=== PATIENT | male | born 1980 | race Caucasian/White ===

== ENCOUNTER 2016-04-29 12:53 | Emergency (ER) | payer OTHER ==
[2016-04-29] MEDS ORDERED: ONDANSETRON 4 MG TAB.RAPDIS PO ONE (13:12)
--- NOTE | 2016-04-29 13:13 | ER Document Report ---
ED Medical Screen (RME) - General Stated Complaint: ABDOMINAL PAIN/VOMITING Notes: has been bothering him for about three weeks. left groin and abdominal pain with back pain, diarrhea and difficulty initiating a stream when he urinates denies any fever, chills, hematuria, pyuria, blood in his stool, dark stool admits to hematochezia this am x1 denies recent sexual activity TRAVEL OUTSIDE OF THE [place] 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
[2016-04-29 14:01] LABS: ABSOLUTE BASOPHILS # (AUTO) 0.1 10^3/uL (0.0-0.2); ABSOLUTE EOSINOPHILS # (AUTO) 0.1 10^3/uL (0.0-0.6); ABSOLUTE LYMPHOCYTES (AUTO) 2.7 10^3/uL (0.5-4.7); ABSOLUTE MONOCYTES (AUTO) 0.6 10^3/uL (0.1-1.4); ABSOLUTE NEUT (AUTO) 5.1 10^3/uL (1.7-8.2); BASOPHILS % (AUTO) 0.7 % (0-2); EOSINOPHILS % (AUTO) 0.7 % (0-6); HEMATOCRIT 42.9 % (37.9-51.0); HEMOGLOBIN 14.9 g/dL (13.5-17.0); HGB HCT DIFFERENCE 1.8; LYMPHOCYTES % (AUTO) 31.5 % (13-45); MEAN CORPUSCULAR HEMOGLOBIN 32.1 pg (27.0-33.4); MEAN CORPUSCULAR HGB CONC 34.7 g/dL (32.0-36.0); MEAN CORPUSCULAR VOLUME 92 fl (80-97); MONOCYTES % (AUTO) 6.9 % (3-13); RED BLOOD COUNT 4.65 10^6/uL (4.35-5.55); SEGMENTED NEUTROPHILS % (AUTO) 60.2 % (42-78); WHITE BLOOD COUNT 8.5 10^3/uL (4.0-10.5)
[2016-04-29 14:08] LABS: APPEARANCE,URINE SLIGHTLY-CLOUDY; BILIRUBIN,URINE NEGATIVE (NEGATIVE); GLUCOSE, URINE NEGATIVE (NEGATIVE); KETONES,URINE NEGATIVE (NEGATIVE); LEUKOCYTE ESTERASE,URINE NEGATIVE (NEGATIVE); NITRITE,URINE NEGATIVE (NEGATIVE); PROTEIN,URINE NEGATIVE (NEGATIVE); UROBILINOGEN,URINE NEGATIVE mg/dL (<2.0)
[2016-04-29 14:27] LABS: ALANINE AMINOTRANSFERASE 66 U/L (21-72); ALKALINE PHOSPHATASE 70 U/L (38-126); ANION GAP 14 (5-19); ASPARTATE AMINO TRANSFERASE 40 U/L (17-59); BILIRUBIN,TOTAL 0.6 mg/dL (0.2-1.3); BLOOD UREA NITROGEN 16 mg/dL (7-20); CALCIUM 9.6 mg/dL (8.4-10.2); CARBON DIOXIDE 26 mmol/L (22-30); CHLORIDE 107 mmol/L (98-107); CREATININE RESULT 0.76 mg/dL (0.52-1.25); GLUCOSE 80 mg/dL (75-110); POTASSIUM 3.9 mmol/L (3.6-5.0); SODIUM 146.6 mmol/L (137-145); TOTAL PROTEIN 7.2 g/dL (6.3-8.2)
[2016-04-29] MEDS ORDERED: KETOROLAC TROMETHAMINE 60 MG/2 ML SDV IM ONE (15:49)
[2016-04-29] MEDS ORDERED: OXYCODONE-ACETAMINOPHEN 5-325 MG TABLET PO ONE (15:49)
--- NOTE | 2016-04-29 15:53 | ER Document Report ---
[id number] PAIN/VOMITING Mode of Arrival: Ambulatory Information source: Patient Notes: 28-year-old male presents with complaints of diarrhea of 3 week duration with left flank pain of one week duration associated with testicular pain difficulty urinating. Patient does note history of kidney stones denies any fevers or chills admits to mild nausea. pt seen at pcp , noted no testicular concerns TRAVEL OUTSIDE OF THE [place] IN LAST 30 DAYS: No - HPI Onset: Last week Onset/Duration: Intermittent Quality of pain: Sharp Severity: Mild Pain Level: 1 Associated symptoms: Diarrhea, Nausea, Vomiting Exacerbated by: Denies Relieved by: Denies Similar symptoms previously: Yes Recently seen / treated by doctor: Yes - Related Data Allergies/Adverse Reactions: codeine Allergy (Verified 04/29/16 13:09) Past Medical History - Social History Smoking Status: Current Every Day Smoker Cigarette use (# per day): Yes Chew tobacco use (# tins/day): No Smoking Education Provided: Yes - Patient counselled regarding cessation for 4 minutes Frequency of alcohol use: None Drug Abuse: None Family History: Reviewed & Not Pertinent Patient has suicidal ideation: No Patient has homicidal ideation: No Neurological Medical History: Reports: Hx Seizures Renal/ Medical History: Reports: Hx Kidney Stones. 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 Denies recent illness. EENT: Denies eye, ear, throat, or mouth pain or symptoms. Denies nasal or sinus congestion or discharge. Denies throat, tongue, or mouth swelling or difficulty swallowing. CARDIOVASCULAR: Denies chest pain. Denies palpitations or racing or irregular heart beat. Denies ankle edema. RESPIRATORY: Denies cough, cold, or chest congestion. Denies shortness of breath, difficulty breathing, or wheezing. GASTROINTESTINAL: Admits nausea vomiting diarrhea testicular pain GENITOURINARY: Denies difficulty urinating, painful urination, burning, frequency, blood in urine, or discharge. MUSCULOSKELETAL: Denies back or neck pain or stiffness. Denies joint pain or swelling. SKIN: Denies rash, lesions or sores. HEMATOLOGIC : Denies easy bruising or bleeding. LYMPHATIC: Denies swollen, enlarged glands. NEUROLOGICAL: Denies confusion or altered mental status. Denies passing out or loss of consciousness. Denies dizziness or lightheadedness. Denies headache. Denies weakness or paralysis or loss of use of either side. Denies problems with gait or speech. Denies sensory loss, numbness, or tingling. Denies seizures. PSYCHIATRIC: Denies anxiety or stress. Denies depression, suicidal ideation, or homicidal ideation. ALL OTHER SYSTEMS REVIEWED AND NEGATIVE. Dictation was performed using [employer] voice recognition software PHYSICAL EXAMINATION: GENERAL: Well-appearing, well-nourished and in no acute distress. HEAD: Atraumatic, normocephalic. EYES: Pupils equal round and reactive to light, extraocular movements intact, sclera anicteric, conjunctiva are normal. ENT: Nares patent, oropharynx clear without exudates. Moist mucous membranes. NECK: Normal range of motion, supple without lymphadenopathy LUNGS: Breath sounds clear to auscultation bilaterally and equal. No wheezes rales or rhonchi. HEART: Regular rate and rhythm without murmurs ABDOMEN: Mild left lower quadrant pain no rebound or guarding no testicular swelling or redness Musculoskeletal: Normal range of motion, no pitting or edema. No cyanosis. NEUROLOGICAL: Cranial nerves grossly intact. Normal speech, normal gait. Normal sensory, motor exams PSYCH: Normal mood, normal affect. SKIN: Warm, Dry, normal turgor, no rashes or lesions noted. Physical Exam - Vital signs Vitals: Temp Pulse Resp BP Pulse Ox 97.9 F 65 15 127/67 H 98 04/29/16 13:09 04/29/16 13:09 04/29/16 13:09 04/29/16 13:09 04/29/16 13:09 Course - Re-evaluation Re-evalutation: 04/29/16 22:27 Patient's presentation was concerning for a kidney stone, CT did confirm a 4 mm stone patient will be given a strainer pain control Flomax and follow-up with urology is no testicular involvement noted After performing a Medical Screening Examination, I estimate there is LOW risk for ACUTE APPENDICITIS, BOWEL OBSTRUCTION, ACUTE CHOLECYSTITIS, PERFORATED DIVERTICULITIS, INCARCERATED HERNIA, PANCREATITIS, or PERFORATED ULCER, thus I consider the discharge disposition reasonable. Also, there is no evidence or peritonitis, sepsis, or toxicity. The patient and I have discussed the diagnosis and risks, and we agree with discharging home with close follow-up with the understanding that symptoms and presentations can change. We also discussed returning to the Emergency Department immediately if new or worsening symptoms occur. We have discussed the symptoms which are most concerning (e.g., bloody stool, fever, changing or worsening pain, intractable vomiting - standard verbal up date) that necessitate immediate return. - Vital Signs Vital signs: Temp Pulse Resp BP Pulse Ox 97.5 F 63 20 118/83 98 04/29/16 16:20 04/29/16 16:20 04/29/16 16:20 04/29/16 16:20 04/29/16 16:20 - Laboratory Result Diagrams: 04/29/16 13:15 04/29/16 13:15 Laboratory results interpreted by me: 04/29/16 04/29/16 13:15 13:15 Sodium 146.6 H Urine Blood LARGE H - Diagnostic Test Radiology reviewed: Image reviewed, Reports reviewed Discharge - Discharge Clinical Impression: Kidney stone on left side Abdominal pain Qualifiers: Abdominal location: left lower quadrant Qualified Code(s): R10.32 - Left lower quadrant pain Condition: Stable Disposition: HOME, SELF-CARE Instructions: Abdominal Pain ([facility]), Kidney Stone ([facility]) Prescriptions: Oxycodone HCl/Acetaminophen [Percocet 5-325 mg Tablet] 1 - 2 tab PO Q4H PRN #15 tablet PRN Reason: Oxycodone HCl/Acetaminophen [Percocet 5-325 mg Tablet] 1 - 2 tab PO Q4H PRN #15 tablet PRN Reason: Promethazine HCl [Phenergan 25 mg Tablet] 1 - 2 tab PO Q6H PRN #15 tablet PRN Reason: Promethazine HCl [Phenergan 25 mg Tablet] 1 - 2 tab PO Q6H PRN #15 tablet PRN Reason: Tamsulosin HCl [Flomax 0.4 mg Cap.sr] 0.4 mg PO DAILY #7 cap.sr.24h Tamsulosin HCl [Flomax] 0.4 mg PO DAILY #7 cap.er.24h Referrals: HUBERT DARBY MD [ACTIVE STAFF] - Follow up tomorrow
[2016-04-29 16:21] VITALS: BP 118/83
== END 2016-04-29 16:30 | disposition home or self-care (01) ==
LOC: ER 12:53
DX: N20.0 Calculus of kidney (principal); R10.32 Left lower quadrant pain; R11.2 Nausea with vomiting, unspecified; N50.819 Testicular pain, unspecified; F17.210 Nicotine dependence, cigarettes, uncomplicated
CPT/HCPCS: 99284; 96372; 36415; 83690; 85025; 80053; 81001; 76380; J1885; S0119

== ENCOUNTER 2016-05-03 16:43 | Emergency (ER) | payer OTHER ==
[2016-05-03] MEDS ORDERED: OXYCODONE-ACETAMINOPHEN 5-325 MG TABLET PO ONE (17:05)
--- NOTE | 2016-05-03 17:05 | ER Document Report ---
ED Medical Screen (RME) - General Stated Complaint: ABDOMINAL PAIN Notes: pt has had left flank and groin pain for 4 weeks was d/c home with kidney stone. states pain medication isnt helping I have greeted and performed a rapid initial assessment of this patient. A comprehensive ED assessment and evaluation of the patient, analysis of test results and completion of the medical decision making process will be conducted by additional ED providers. TRAVEL OUTSIDE OF THE [place] IN LAST 30 DAYS: No - Related Data Allergies/Adverse Reactions: codeine Allergy (Verified 05/03/16 17:02) Past Medical History Neurological Medical History: Reports: Hx Seizures Renal/ Medical History: Reports: Hx Kidney Stones. 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
[2016-05-03 17:52] LABS: ABSOLUTE MONOCYTES (AUTO) 0.6 10^3/uL (0.1-1.4); ABSOLUTE NEUT (AUTO) 5.2 10^3/uL (1.7-8.2); BASOPHILS % (AUTO) 0.5 % (0-2); EOSINOPHILS % (AUTO) 0.6 % (0-6); HEMATOCRIT 45.7 % (37.9-51.0); HEMOGLOBIN 15.2 g/dL (13.5-17.0); HGB HCT DIFFERENCE -0.1; LYMPHOCYTES % (AUTO) 25.5 % (13-45); MEAN CORPUSCULAR HEMOGLOBIN 31.5 pg (27.0-33.4); MEAN CORPUSCULAR HGB CONC 33.3 g/dL (32.0-36.0); MEAN CORPUSCULAR VOLUME 95 fl (80-97); MONOCYTES % (AUTO) 7.7 % (3-13); RED BLOOD COUNT 4.84 10^6/uL (4.35-5.55); RED CELL DISTRIBUTION WIDTH 13.4 % (11.5-14.0); SEGMENTED NEUTROPHILS % (AUTO) 65.7 % (42-78)
[2016-05-03 17:56] LABS: ALANINE AMINOTRANSFERASE 96 U/L (21-72); ALBUMIN 4.4 g/dL (3.5-5.0); ALKALINE PHOSPHATASE 88 U/L (38-126); ANION GAP 11 (5-19); ASPARTATE AMINO TRANSFERASE 62 U/L (17-59); BILIRUBIN,TOTAL 0.7 mg/dL (0.2-1.3); BLOOD UREA NITROGEN 8 mg/dL (7-20); CALCIUM 9.9 mg/dL (8.4-10.2); CARBON DIOXIDE 28 mmol/L (22-30); CHLORIDE 108 mmol/L (98-107); CREATININE RESULT 0.78 mg/dL (0.52-1.25); GLUCOSE 84 mg/dL (75-110); POTASSIUM 4.2 mmol/L (3.6-5.0); SODIUM 147.2 mmol/L (137-145); TOTAL PROTEIN 7.5 g/dL (6.3-8.2)
--- NOTE | 2016-05-03 20:52 | ER Document Report ---
ED GI/ - General Chief Complaint: Abdominal Pain Stated Complaint: ABDOMINAL PAIN Mode of Arrival: Ambulatory TRAVEL OUTSIDE OF THE [place] IN LAST 30 DAYS: No - HPI Patient complains to provider of: Flank pain - This 36-year-old male who presents to the emergency room today stating he had the left lower stomach and groin pain last time he had this Titone the need had a kidney stone - Related Data Allergies/Adverse Reactions: codeine Allergy (Verified 05/03/16 17:02) Past Medical History - General Information source: Patient - Social History Smoking Status: Current Every Day Smoker Chew tobacco use (# tins/day): No Frequency of alcohol use: None Drug Abuse: None Family History: Reviewed & Not Pertinent Patient has suicidal ideation: No Patient has homicidal ideation: No Neurological Medical History: Reports: Hx Seizures Renal/ Medical History: Reports: Hx Kidney Stones. 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, Hx Orthopedic Surgery - Left shoulder surgery 3, Other - Kidney stone surgery - Immunizations Hx Diphtheria, Pertussis, Tetanus Vaccination: Yes Review of Systems - Review of Systems Constitutional: No symptoms reported EENT: No symptoms reported Cardiovascular: No symptoms reported Respiratory: No symptoms reported Gastrointestinal: Other - Flank pain left sided with radiation to the groin Genitourinary: No symptoms reported Male Genitourinary: No symptoms reported Musculoskeletal: No symptoms reported Skin: No symptoms reported Hematologic/Lymphatic: No symptoms reported Neurological/Psychological: No symptoms reported Physical Exam - Vital signs Vitals: Temp Pulse Resp BP Pulse Ox 97.8 F 76 18 142/90 H 95 05/03/16 17:03 05/03/16 17:03 05/03/16 17:03 05/03/16 17:03 05/03/16 17:03 Interpretation: Normal - General General appearance: Appears well, Alert - HEENT Head: Normocephalic, Atraumatic Eyes: Normal Pupils: PERRL - Respiratory Respiratory status: No respiratory distress Chest status: Nontender Breath sounds: Normal Chest palpation: Normal - Cardiovascular Rhythm: Regular Heart sounds: Normal auscultation Murmur: No - Abdominal Inspection: Normal Distension: No distension Bowel sounds: Normal Tenderness: Nontender Organomegaly: No organomegaly - Back Back: Normal, Nontender - Extremities General upper extremity: Normal inspection, Nontender, Normal color, Normal ROM , Normal temperature General lower extremity: Normal inspection, Nontender, Normal color, Normal ROM , Normal temperature, Normal weight bearing. No: Adan's sign - Neurological Neuro grossly intact: Yes Cognition: Normal Orientation: AAOx4 [place] Coma Scale Eye Opening: Spontaneous [place] Coma Scale Verbal: Oriented [place] Coma Scale Motor: Obeys Commands [place] Coma Scale Total: 15 Speech: Normal Motor strength normal: LUE, RUE, LLE, RLE Sensory: Normal - Psychological Associated symptoms: Normal affect, Normal mood - Skin Skin Temperature: Warm Skin Moisture: Dry Skin Color: Normal Course - Vital Signs Vital signs: Temp Pulse Resp BP Pulse Ox 97.8 F 76 18 142/90 H 95 05/03/16 17:03 05/03/16 17:03 05/03/16 17:03 05/03/16 17:03 05/03/16 17:03 - Laboratory Result Diagrams: 05/03/16 17:20 05/03/16 17:20 Laboratory results interpreted by me: 05/03/16 17:20 Sodium 147.2 H Chloride 108 H AST 62 H ALT 96 H - Diagnostic Test Radiology reviewed: Reports reviewed Discharge - Discharge Clinical Impression: Renal colic on left side Disposition: HOME, SELF-CARE Additional Instructions: Kidney Stone You are passing or have passed a kidney stone. These stones are usually due to increased calcium or uric acid concentrations in your urine. Stones within the kidney itself are not painful. The pain occurs as the stone leaves the kidney to pass down the long tube, called the ureter, leading to the bladder. If the stone is small, it will usually pass by itself. Most patients can pass the stone at home. You will usually receive medications for pain, nausea or vomiting, and sometimes a medication to assist in passing the kidney stone. However, if the pain is very severe or if vomiting prevents you from taking oral pain medications, you may need to return for further treatment. Drink three or four quarts of fluids per day. You will be given pain medication (if needed) and urine strainers. Strain all your urine to see if the stone passes. If your doctor has asked you to bring the stone in for analysis, return with the stone once it has passed. Return if pain or vomiting become severe, if you develop a high fever, if you are unable to pass your urine, or if other unusual symptoms occur. Follow-up with private doctor in 1 to 2 days for final radiology readings please return to the emergency room for any change worsening condition. Follow up with private M.D. for all other routine health care needs. Prescriptions: Ciprofloxacin HCl [Cipro 500 mg Tablet] 500 mg PO BID #10 tablet Hydrocodone/Acetaminophen [R[place] 5-325 Tablet] 1 each PO Q4 PRN #12 tablet PRN Reason: Tamsulosin HCl [Flomax 0.4 mg Cap.sr] 0.4 mg PO DAILY #7 cap.sr.24h
[2016-05-03] MEDS ORDERED: HYDROCODONE/ACETAMINOPHEN 5-325 MG TABLET PO ONE (20:54)
[2016-05-03 21:27] VITALS: BP 133/91
== END 2016-05-03 21:26 | disposition home or self-care (01) ==
LOC: ER 16:43
DX: N23 Unspecified renal colic (principal); F17.200 Nicotine dependence, unspecified, uncomplicated; Z87.442 Personal history of urinary calculi; Z98.890 Other specified postprocedural states
CPT/HCPCS: 36415; 74000; 80053; 85025; 99284

== ENCOUNTER 2016-05-07 23:26 | Emergency (ER) | payer SELFPAY ==
[2016-05-08] MEDS ORDERED: ONDANSETRON HCL INJ/PF 4 MG/2 ML SDV IV ONE (00:20)
[2016-05-08] MEDS ORDERED: MORPHINE SULFATE 10 MG/ML INJ IV ONE ×2 (00:20→02:21)
--- NOTE | 2016-05-08 00:20 | ER Document Report ---
ED GI/ - General Mode of Arrival: Ambulatory Information source: Patient TRAVEL OUTSIDE OF THE [place] IN LAST 30 DAYS: No - HPI Patient complains to provider of: Flank pain Associated symptoms: Other - See above <MARKEL MANZANO - Last Filed: 05/08/16 00:55> <LISA NAIDU - Last Filed: 05/08/16 03:21> - General Chief Complaint: Flank Pain Stated Complaint: Flank pain Notes: Patient is a 36 year old male, with a past medical history including kidney stones and asthma, who presents to the emergency department complaining of left flank pain onset around noon yesterday. Patient reports the pain radiates into his left back and groin. Patient has been taking Tylenol at home for the pain. Patient states that he has had kidney stones in the past that he has either passed or had a stent placed. Patient reports he had a CAT scan performed one week ago but did not follow-up with a urologist due to cost. Patient reports he has been recovering from walking pneumonia for the last month and denies difficulty breathing. (MARKEL MANZANO) - Related Data Allergies/Adverse Reactions: codeine Allergy (Verified 05/07/16 23:44) Past Medical History - General Information source: Patient - Social History Smoking Status: Current Every Day Smoker Chew tobacco use (# tins/day): No Frequency of alcohol use: None Drug Abuse: None Family History: Reviewed & Not Pertinent Patient has suicidal ideation: No Patient has homicidal ideation: No Pulmonary Medical History: Reports: Hx Asthma Neurological Medical History: Reports: Hx Seizures Renal/ Medical History: Reports: Hx Kidney Stones GI Medical History: Reports: Hx Gastroesophageal Reflux Disease Past Surgical History: Reports: Hx Neurologic Surgery - 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, Hx Orthopedic Surgery - Left shoulder surgery 3, Other - Kidney stone surgery - Immunizations Hx Diphtheria, Pertussis, Tetanus Vaccination: Yes <MARKEL MANZANO - Last Filed: 05/08/16 00:55> Review of Systems - Review of Systems Constitutional: No symptoms reported EENT: No symptoms reported Cardiovascular: No symptoms reported Respiratory: denies: Other - Difficulty breathing Gastrointestinal: No symptoms reported Genitourinary: See HPI, Flank pain Male Genitourinary: No symptoms reported Musculoskeletal: No symptoms reported Skin: No symptoms reported Hematologic/Lymphatic: No symptoms reported Neurological/Psychological: No symptoms reported -: Yes All other systems reviewed and negative <MARKEL MANZANO - Last Filed: 05/08/16 00:55> Physical Exam - Vital signs Interpretation: Normal - General General appearance: Appears well, Alert - HEENT Head: Normocephalic, Atraumatic - Respiratory Respiratory status: No respiratory distress Chest status: Nontender Breath sounds: Wheezing - Diffuse Chest palpation: Normal - Cardiovascular Rhythm: Regular Heart sounds: Normal auscultation Murmur: No - Abdominal Inspection: Normal Distension: No distension Bowel sounds: Normal Organomegaly: No organomegaly - Back Back: CVA tenderness - Extremities General upper extremity: Normal inspection General lower extremity: Normal inspection - Neurological Neuro grossly intact: Yes Cognition: Normal Orientation: AAOx4 [place] Coma Scale Eye Opening: Spontaneous [place] Coma Scale Verbal: Oriented [place] Coma Scale Motor: Obeys Commands [place] Coma Scale Total: 15 Speech: Normal - Psychological Associated symptoms: Normal affect, Normal mood - Skin Skin Temperature: Warm Skin Moisture: Dry Skin Color: Normal <MARKEL MANZANO - Last Filed: 05/08/16 00:55> Course - Laboratory Result Diagrams: 05/08/16 00:37 05/08/16 00:37 <MARKEL MANZANO - Last Filed: 05/08/16 00:55> - Laboratory Result Diagrams: 05/08/16 00:37 05/08/16 00:37 - Diagnostic Test Radiology reviewed: Image reviewed, Reports reviewed <LISA NAIDU - Last Filed: 05/08/16 03:21> - Re-evaluation Re-evalutation: 05/08/16 03:20 Patient with resolution of wheezing after nebulizer treatment and steroids. Patient has had his pain controlled here in the emergency department. Urine is consistent with stone. Patient will be discharged home with pain medication and steroids. He will also be given an albuterol inhaler. He is to follow-up with his doctor. Stable for discharge. Return if any worsening or concerning symptoms. Understands and agrees with plan. (LISA NAIDU) - Vital Signs Vital signs: Temp Pulse Resp BP Pulse Ox 97.6 F 76 18 130/88 H 99 05/08/16 03:10 05/08/16 03:10 05/08/16 03:10 05/08/16 03:10 05/08/16 03:10 (MARKEL MANZANO) (LISA NAIDU) - Laboratory Laboratory results interpreted by me: 05/08/16 05/08/16 05/08/16 00:37 00:37 00:39 Plt Count 133 L Sodium 147.1 H Chloride 110 H Creatinine 1.43 H Est GFR (Non-Af Amer) 55 L Glucose 113 H ALT 82 H Urine Blood MODERATE H (LISA NAIDU) Discharge <MARKEL MANZANO - Last Filed: 05/08/16 00:55> <LISA NAIDU - Last Filed: 05/08/16 03:21> - Discharge Clinical Impression: Renal colic on left side, Asthma exacerbation Condition: Stable Disposition: HOME, SELF-CARE Instructions: Kidney Stone ([facility]), Asthma ([facility]) Prescriptions: Albuterol Sulfate [Proair HFA Inhalation Aerosol 8.5 gm MDI] 2 puff IH Q4H PRN # 1 mdi PRN Reason: Oxycodone HCl/Acetaminophen [Percocet 5-325 mg Tablet] 1 tab PO Q4H PRN #15 tablet PRN Reason: Prednisone 40 mg PO DAILY #6 tablet Forms: Return to Work Scribe Attestation: 05/08/16 03:21 I personally performed the services described in the documentation, reviewed and edited the documentation which was dictated to the scribe in my presence, and it accurately records my words and actions. (LISA NAIDU) Scribe Documentation - Scribe Written by Bigg:: bigg Loya, 05/08/16, 0100 acting as scribe for :: Shea <MARKEL MANZANO - Last Filed: 05/08/16 00:55>
[2016-05-08] MEDS ORDERED: IPRATROPIUM/ALBUTEROL 0.5-2.5 MG/3 ML AMPUL NEB ONE (00:21)
[2016-05-08] MEDS ORDERED: NORMAL SALINE 1000 ML 1,000 ML IV ONE (00:21)
[2016-05-08] MEDS ORDERED: METHYLPREDNISOLONE INJ 125 MG/2 ML SDV IV ONE (00:21)
[2016-05-08 00:52] LABS: ABSOLUTE BASOPHILS # (AUTO) 0.1 10^3/uL (0.0-0.2); ABSOLUTE EOSINOPHILS # (AUTO) 0.1 10^3/uL (0.0-0.6); ABSOLUTE LYMPHOCYTES (AUTO) 2.2 10^3/uL (0.5-4.7); ABSOLUTE MONOCYTES (AUTO) 0.7 10^3/uL (0.1-1.4); BASOPHILS % (AUTO) 1.1 % (0-2); EOSINOPHILS % (AUTO) 0.7 % (0-6); HEMATOCRIT 42.7 % (37.9-51.0); HEMOGLOBIN 14.8 g/dL (13.5-17.0); HGB HCT DIFFERENCE 1.7; LYMPHOCYTES % (AUTO) 22.2 % (13-45); MEAN CORPUSCULAR HGB CONC 34.7 g/dL (32.0-36.0); MEAN CORPUSCULAR VOLUME 92 fl (80-97); MONOCYTES % (AUTO) 7.2 % (3-13); RED BLOOD COUNT 4.62 10^6/uL (4.35-5.55); RED CELL DISTRIBUTION WIDTH 13.3 % (11.5-14.0); SEGMENTED NEUTROPHILS % (AUTO) 68.8 % (42-78); WHITE BLOOD COUNT 10.1 10^3/uL (4.0-10.5)
[2016-05-08 00:58] LABS: AMORPHOUS SEDIMENT,URINE TRACE /HPF; APPEARANCE,URINE CLEAR; BILIRUBIN,URINE NEGATIVE (NEGATIVE); GLUCOSE, URINE NEGATIVE (NEGATIVE); KETONES,URINE NEGATIVE (NEGATIVE); LEUKOCYTE ESTERASE,URINE NEGATIVE (NEGATIVE); NITRITE,URINE NEGATIVE (NEGATIVE); PROTEIN,URINE NEGATIVE (NEGATIVE); URINE SPECIFIC GRAVITY 1.027; UROBILINOGEN,URINE NEGATIVE mg/dL (<2.0)
[2016-05-08 01:23] LABS: ALBUMIN 3.8 g/dL (3.5-5.0); ALKALINE PHOSPHATASE 81 U/L (38-126); ANION GAP 14 (5-19); ASPARTATE AMINO TRANSFERASE 43 U/L (17-59); BILIRUBIN,TOTAL 0.6 mg/dL (0.2-1.3); BLOOD UREA NITROGEN 17 mg/dL (7-20); CALCIUM 9.6 mg/dL (8.4-10.2); CARBON DIOXIDE 23 mmol/L (22-30); CHLORIDE 110 mmol/L (98-107); CREATININE RESULT 1.43 mg/dL (0.52-1.25); GLUCOSE 113 mg/dL (75-110); LIPASE 77.4 U/L (23-300); POTASSIUM 3.9 mmol/L (3.6-5.0); SODIUM 147.1 mmol/L (137-145); TOTAL PROTEIN 6.8 g/dL (6.3-8.2)
[2016-05-08 01:31] LABS: ALANINE AMINOTRANSFERASE 82 U/L (21-72)
[2016-05-08] MEDS ORDERED: HYDROCODONE/ACETAMINOPHEN 5-325 MG 6 TAB/DSPK PO PRN (02:42)
[2016-05-08] MEDS ORDERED: ALBUTEROL SULFATE HFA (90 MCG/PUFF) 8 GM MDI (1 MDI/ER DISP) IH ONE (02:42)
[2016-05-08 03:16] VITALS: BP 130/88
== END 2016-05-08 03:10 | disposition home or self-care (01) ==
LOC: ER 23:26
DX: N23 Unspecified renal colic (principal); J45.901 Unspecified asthma with (acute) exacerbation; R10.9 Unspecified abdominal pain; F17.200 Nicotine dependence, unspecified, uncomplicated; Z87.442 Personal history of urinary calculi; Z88.6 Allergy status to analgesic agent
CPT/HCPCS: 96376; 94640; 99284; 96361; 96374; 96375; 36415; 83690; 85025; 80053; 81001; 71020; 74000; J2930; J2270; J2405; J7030; J3490; J7620

== ENCOUNTER 2016-08-16 13:33 | Emergency (ER) | payer SELFPAY ==
[2016-08-16] MEDS ORDERED: ONDANSETRON 4 MG TAB.RAPDIS PO ONE (15:18)
--- NOTE | 2016-08-16 15:19 | ER Document Report ---
ED Medical Screen (RME) - General Chief Complaint: Flank Pain Stated Complaint: SIDE PAIN Time seen by provider: 15:19 Mode of Arrival: Ambulatory Information source: Patient Notes: 36-year-old male with a history of kidney stones is complaining of left flank pain that radiates to the penis for 3 days. His urine is very dark. 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 Some nausea and vomiting last night. Mild diarrhea last night. TRAVEL OUTSIDE OF THE [place] IN LAST 30 DAYS: No - Related Data Allergies/Adverse Reactions: codeine Allergy (Verified 08/16/16 13:57) Past Medical History Pulmonary Medical History: Reports: Hx Asthma Neurological Medical History: Reports: Hx Seizures Renal/ Medical History: Reports: Hx Kidney Stones. 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
[2016-08-16 16:00] LABS: ABSOLUTE LYMPHOCYTES (AUTO) 2.3 10^3/uL (0.5-4.7); ABSOLUTE MONOCYTES (AUTO) 0.4 10^3/uL (0.1-1.4); ABSOLUTE NEUT (AUTO) 4.6 10^3/uL (1.7-8.2); BASOPHILS % (AUTO) 0.5 % (0-2); EOSINOPHILS % (AUTO) 0.5 % (0-6); HEMATOCRIT 46.8 % (37.9-51.0); HEMOGLOBIN 16.3 g/dL (13.5-17.0); HGB HCT DIFFERENCE 2.1; LYMPHOCYTES % (AUTO) 30.9 % (13-45); MEAN CORPUSCULAR HEMOGLOBIN 31.6 pg (27.0-33.4); MEAN CORPUSCULAR HGB CONC 34.8 g/dL (32.0-36.0); MEAN CORPUSCULAR VOLUME 91 fl (80-97); MONOCYTES % (AUTO) 5.6 % (3-13); RED BLOOD COUNT 5.14 10^6/uL (4.35-5.55); RED CELL DISTRIBUTION WIDTH 13.8 % (11.5-14.0); SEGMENTED NEUTROPHILS % (AUTO) 62.5 % (42-78); WHITE BLOOD COUNT 7.4 10^3/uL (4.0-10.5)
[2016-08-16 16:19] LABS: ALANINE AMINOTRANSFERASE 85 U/L (21-72); ALBUMIN 4.8 g/dL (3.5-5.0); ALKALINE PHOSPHATASE 85 U/L (38-126); ANION GAP 15 (5-19); ASPARTATE AMINO TRANSFERASE 53 U/L (17-59); BILIRUBIN,DIRECT 0.4 mg/dL (0.0-0.4); BILIRUBIN,TOTAL 1.1 mg/dL (0.2-1.3); BLOOD UREA NITROGEN 16 mg/dL (7-20); CARBON DIOXIDE 23 mmol/L (22-30); CHLORIDE 109 mmol/L (98-107); CREATININE RESULT 0.81 mg/dL (0.52-1.25); GLUCOSE 104 mg/dL (75-110); POTASSIUM 4.7 mmol/L (3.6-5.0); SODIUM 146.7 mmol/L (137-145); TOTAL PROTEIN 8.5 g/dL (6.3-8.2)
[2016-08-16 16:41] LABS: APPEARANCE,URINE SLIGHTLY-CLOUDY; BILIRUBIN,URINE NEGATIVE (NEGATIVE); GLUCOSE, URINE NEGATIVE (NEGATIVE); KETONES,URINE NEGATIVE (NEGATIVE); LEUKOCYTE ESTERASE,URINE TRACE (NEGATIVE); NITRITE,URINE NEGATIVE (NEGATIVE); PROTEIN,URINE NEGATIVE (NEGATIVE); URINE SPECIFIC GRAVITY 1.039; UROBILINOGEN,URINE NEGATIVE mg/dL (<2.0)
--- NOTE | 2016-08-16 16:46 | ER Document Report ---
ED GI/ - General Chief Complaint: Flank Pain Stated Complaint: SIDE PAIN Time seen by provider: 16:46 Mode of Arrival: Ambulatory Information source: Patient Notes: 36 yo male c/o left flank pain that radiates to left testicle. Same pain that he has had in the past with kidney stone 05/03/16 with hydronephrosis. Some nausea and vomiting. No diarrhea. No fever or chills. Wants flomax and antibiotics. TRAVEL OUTSIDE OF THE [place] IN LAST 30 DAYS: No - Related Data Allergies/Adverse Reactions: codeine Allergy (Verified 08/16/16 13:57) Past Medical History - General Information source: Patient - Social History Smoking Status: Current Every Day Smoker Frequency of alcohol use: None Drug Abuse: None Lives with: Family Family History: Reviewed & Not Pertinent Patient has suicidal ideation: No Patient has homicidal ideation: No Pulmonary Medical History: Reports: Hx Asthma Neurological Medical History: Reports: Hx Seizures Renal/ Medical History: Reports: Hx Kidney Stones. 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, Hx Orthopedic Surgery - Left shoulder surgery 3, Other - Kidney stone surgery - Immunizations Hx Diphtheria, Pertussis, Tetanus Vaccination: Yes Review of Systems - Review of Systems Constitutional: No symptoms reported EENT: No symptoms reported Cardiovascular: No symptoms reported Respiratory: No symptoms reported Gastrointestinal: No symptoms reported Genitourinary: No symptoms reported Male Genitourinary: See HPI Musculoskeletal: No symptoms reported Skin: No symptoms reported Hematologic/Lymphatic: No symptoms reported Neurological/Psychological: No symptoms reported Physical Exam - Vital signs Vitals: Temp Pulse Resp BP Pulse Ox 97.5 F 65 16 133/86 H 98 08/16/16 13:59 08/16/16 13:59 08/16/16 13:59 08/16/16 13:59 08/16/16 13:59 Interpretation: Normal - General General appearance: Appears well, Alert - HEENT Head: Normocephalic, Atraumatic Eyes: Normal Conjunctiva: Normal Pupils: PERRL Pharynx: Normal Neck: Supple - Respiratory Respiratory status: No respiratory distress Chest status: Nontender Breath sounds: Normal Chest palpation: Normal - Cardiovascular Rhythm: Regular Heart sounds: Normal auscultation Murmur: No - Abdominal Inspection: Normal Distension: No distension Bowel sounds: Normal Tenderness: Nontender Organomegaly: No organomegaly - Genitourinary Tenderness: Epididymis tender - Mild Scrotum: Normal. No: Swelling - Back Back: Tender - Over the left kidney. No: CVA tenderness, Vertebra tenderness - Extremities General upper extremity: Normal inspection, Nontender, Normal color, Normal ROM , Normal temperature General lower extremity: Normal inspection, Nontender, Normal color, Normal ROM , Normal temperature, Normal weight bearing. No: Adan's sign - Neurological Neuro grossly intact: Yes Cognition: Normal Orientation: AAOx4 [place] Coma Scale Eye Opening: Spontaneous [place] Coma Scale Verbal: Oriented [place] Coma Scale Motor: Obeys Commands [place] Coma Scale Total: 15 Speech: Normal Motor strength normal: LUE, RUE, LLE, RLE Sensory: Normal - Psychological Associated symptoms: Normal affect, Normal mood - Skin Skin Temperature: Warm Skin Moisture: Dry Skin Color: Normal Skin irregularity: negative: Rash Course - Re-evaluation Re-evalutation: 08/16/16 16:51 ct no hydro. urine with 30 RBC, urine culture is pending. ALT is 85 08/16/16 16:52 - Vital Signs Vital signs: Temp Pulse Resp BP Pulse Ox 97.7 F 75 16 135/82 H 97 08/16/16 17:16 08/16/16 17:16 08/16/16 13:59 08/16/16 17:16 08/16/16 17:16 - Laboratory Result Diagrams: 08/16/16 15:30 08/16/16 15:30 Laboratory results interpreted by me: 08/16/16 08/16/16 15:30 15:30 Sodium 146.7 H Chloride 109 H ALT 85 H Total Protein 8.5 H Urine Blood SMALL H Ur Leukocyte Esterase TRACE H Discharge - Discharge Clinical Impression: microscopic hematuria, dehydration, Flank pain, orchitis Condition: Good Disposition: HOME, SELF-CARE Instructions: Abdominal Pain ([facility]), Flank Pain ([facility]), Flomax ([facility]), Doxycycline ([facility]), Gastroenterology, Liver Function Abnormality ([facility]), Hematuria ([facility]) Additional Instructions: See the urologist See the carbide tool die maker about Hep C and mildly elevated liver enzymes Return to the emergency room if worse drink 2 liters of water daily until urine is light colored urine culture is pending Please complete the patient satisfaction survey if you get one, and return it.. If you do not receive a survey, then you can go to the [facility] website, [email or web address] and place your comments about your very good care. Thank you very much. It was a pleasure being your medical provider today. Prescriptions: Doxycycline Hyclate 100 mg PO BID #14 tablet Tamsulosin HCl [Flomax 0.4 mg Cap.sr] 0.4 mg PO DAILY #6 cap.sr.24h Referrals: INOCENCIO VIZCARRA MD [MARIO MANCERA] - Follow up as needed
[2016-08-16 16:48] LABS: URINE BARBITURATES SCREEN NEGATIVE; URINE METHADONE SCREEN NEGATIVE; URINE OPIATES LOW NEGATIVE; URINE PHENCYCLIDINE SCREEN NEGATIVE
[2016-08-16] MEDS ORDERED: DOXYCYCLINE HYCLATE 100 MG TABLET PO ONE (17:15)
[2016-08-16] MEDS ORDERED: TAMSULOSIN HCL 0.4 MG CAP.SR.24H PO ONE (17:15)
[2016-08-16 17:17] VITALS: BP 135/82
== END 2016-08-16 17:27 | disposition home or self-care (01) ==
LOC: ER 13:33
DX: R10.9 Unspecified abdominal pain (principal); N45.2 Orchitis; E86.0 Dehydration; R31.29 Other microscopic hematuria; R11.2 Nausea with vomiting, unspecified; F17.200 Nicotine dependence, unspecified, uncomplicated; J45.909 Unspecified asthma, uncomplicated; Z87.442 Personal history of urinary calculi; Z88.5 Allergy status to narcotic agent
CPT/HCPCS: 36415; 76380; 80053; 80307; 81001; 85025; 87086; 99284

== ENCOUNTER → 2017-06-07 | Outpatient (CLI) | payer OTHER ==
--- NOTE | 2017-06-07 14:13 | RADIOLOGY REPORT (SQ) ---
EXAM DESCRIPTION: U/S ABDOMEN LIMITED W/O DOP COMPLETED DATE/TIME: 06/07/2017 10:58 am REASON FOR STUDY: CHRONIC VIRAL HEPATITIS B W/O DELTA AGENT B18.1 CHRONIC VIRAL HEPATITIS B WITHOUT DELTA-AGENT COMPARISON: None. CT renal 08/16/2016 TECHNIQUE: Dynamic and static grayscale images acquired of the abdomen and recorded on PACS. Additio nal selected color Doppler and spectral images recorded. LIMITATIONS: None. FINDINGS: PANCREAS: Not visualized. LIVER: Fatty liver. No focal masses. 21 cm. LIVER VASCULATURE: Normal directional flow of the main portal vein and hepatic veins. GALLBLADDER: No stones. Normal wall thickness. No pericholecystic fluid. ULTRASOUND-DETECTED MATIAS'S SIGN: Negative. INTRAHEPATIC DUCTS AND COMMON DUCT: CBD and intrahepatic ducts normal caliber. No filling defects. INFERIOR VENA CAVA: Normal flow. AORTA: No aneurysm. RIGHT KIDNEY: Normal size. Normal echogenicity. 3.8 cm upper pole cyst. No hydronephrosis. N o calcifications. PERITONEAL AND RIGHT PLEURAL SPACE: No ascites or effusions. OTHER: No other significant findings. IMPRESSION: Fatty enlarged liver. TECHNICAL DOCUMENTATION: JOB ID: [id number] [employer]- All Rights Reserved
== END ==
LOC: RAD 09:46
DX: B18.1 Chronic viral hepatitis B without delta-agent (principal); B18.2 Chronic viral hepatitis C
CPT/HCPCS: 76705

== ENCOUNTER 2017-09-16 14:41 | Emergency (ER) | payer SELFPAY ==
[2017-09-16 14:58] VITALS: BP 130/77
[2017-09-16] MEDS ORDERED: CEPHALEXIN 500 MG CAPSULE PO ONE (15:00)
[2017-09-16] MEDS ORDERED: SULFAMETHOXAZOLE/TRIMETHOPRIM 800-160 MG TABLET PO ONE (15:00)
--- NOTE | 2017-09-16 15:02 | ER Document Report ---
ED Skin Rash/Insect Bite/Abscs - General Chief Complaint: Abscess Stated Complaint: POSSIBLE ABSCESS ON ARM Time Seen by Provider: 09/16/17 14:49 Mode of Arrival: Ambulatory Information source: Patient Notes: 37-year-old male presents to ED for abscess to the right forearm for about 3-4 weeks. He states that he picked up his girlfriend and it made the pain much worse today. He states that softening needs to be open. The abscess does not appear to need to be open but he states that if I do not open it that he is going to go home and open it himself. He is alert and oriented, speaking in full sentences, respirations regular and unlabored, and walks with a even steady gait. TRAVEL OUTSIDE OF THE [place] IN LAST 30 DAYS: No - HPI Patient complains to provider of: Tender/swollen area Onset: Other - 3-4 weeks Onset/Duration: Gradual Quality of pain: Achy Severity: Moderate Pain Level: 3 Skin Character: Abscess Quality of rash: Painful Identify cause: No Exacerbated by: Denies Relieved by: Denies Similar symptoms previously: Yes Recently seen / treated by doctor: No - Related Data Allergies/Adverse Reactions: codeine Allergy (Verified 09/16/17 14:42) Past Medical History - General Information source: Patient - Social History Smoking Status: Current Every Day Smoker Cigarette use (# per day): Yes Chew tobacco use (# tins/day): No Smoking Education Provided: Yes Frequency of alcohol use: Rare Drug Abuse: None Lives with: Spouse/Significant other Family History: Reviewed & Not Pertinent Patient has suicidal ideation: No Patient has homicidal ideation: No - Past Medical History Cardiac Medical History: Reports: None Pulmonary Medical History: Reports: Hx Asthma EENT Medical History: Reports: None Neurological Medical History: Reports: Hx Seizures Endocrine Medical History: Reports: None Renal/ Medical History: Reports: Hx Kidney Stones Malignancy Medical History: Reports None GI Medical History: Reports: Hx Gastroesophageal Reflux Disease Musculoskeltal Medical History: Reports None Skin Medical History: Reports None Psychiatric Medical History: Reports: None Traumatic Medical History: Reports: None Infectious Medical History: Reports: None Past Surgical History: Reports: Hx Neurologic Surgery - 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, Hx Orthopedic Surgery - Left shoulder surgery 3, Other - Kidney stone surgery - Immunizations Hx Diphtheria, Pertussis, Tetanus Vaccination: Yes Review of Systems - Review of Systems Constitutional: No symptoms reported EENT: No symptoms reported Cardiovascular: No symptoms reported Respiratory: No symptoms reported Gastrointestinal: No symptoms reported Genitourinary: No symptoms reported Male Genitourinary: No symptoms reported Musculoskeletal: No symptoms reported Skin: Other - abscess to right forearm Hematologic/Lymphatic: No symptoms reported Neurological/Psychological: No symptoms reported -: Yes All other systems reviewed and negative Physical Exam - Vital signs Vitals: Temp Pulse Resp BP Pulse Ox 97.8 F 75 18 130/77 H 95 09/16/17 14:49 09/16/17 14:49 09/16/17 14:49 09/16/17 14:49 09/16/17 14:49 Interpretation: Normal - General General appearance: Appears well, Alert - HEENT Head: Normocephalic, Atraumatic Eyes: Normal Pupils: PERRL - Respiratory Respiratory status: No respiratory distress Chest status: Nontender Breath sounds: Normal Chest palpation: Normal - Cardiovascular Rhythm: Regular Heart sounds: Normal auscultation Murmur: No - Abdominal Inspection: Normal Distension: No distension Bowel sounds: Normal Tenderness: Nontender Organomegaly: No organomegaly - Back Back: Normal, Nontender - Extremities General upper extremity: Normal color, Normal ROM, Normal temperature General lower extremity: Normal inspection, Nontender, Normal color, Normal ROM , Normal temperature, Normal weight bearing. No: Adan's sign Forearm: Other - abscess - Neurological Neuro grossly intact: Yes Cognition: Normal Orientation: AAOx4 [place] Coma Scale Eye Opening: Spontaneous [place] Coma Scale Verbal: Oriented [place] Coma Scale Motor: Obeys Commands [place] Coma Scale Total: 15 Speech: Normal Motor strength normal: LUE, RUE, LLE, RLE Sensory: Normal - Psychological Associated symptoms: Normal affect, Normal mood - Skin Skin Temperature: Warm Skin Moisture: Dry Skin Color: Normal Skin irregularity: Abscess Location of irregularity: Extremities - right forearm Irregularity with: Swelling, Tenderness, Warmth Course - Re-evaluation Re-evalutation: 09/16/17 15:13 Abscess to right forearm very small minimally red minimally painful no warmth to the area. Patient stated that if I did not open the abscess he was going home and do it himself with a knife. Abscess cleaned with ChloraPrep and opened with a 18-gauge needle. Bloody drainage returned no purulent drainage. Wound culture was sent of the blood and patient was started on Keflex and Bactrim. Patient instructed to return for any increase in swelling pain or fever to the area. Patient verbalized understanding of instructions and agreement with treatment plan. - Vital Signs Vital signs: Temp Pulse Resp BP Pulse Ox 97.8 F 75 18 130/77 H 95 09/16/17 14:49 09/16/17 14:49 09/16/17 14:49 09/16/17 14:49 09/16/17 14:49 Procedures - Incision and Drainage Right Arm Time completed: 15:12 Type: Simple Anesthetic type: Other - none mL's of anesthetic: 0 Blade size: Other - 18 gauge needle I&D procedure: Chlorprep applied Incision Method: Incision made with needle Amount/type of drainage: bloody Discharge - Discharge Clinical Impression: Abscess of right forearm Condition: Stable Disposition: HOME, SELF-CARE Additional Instructions: ABSCESS: You have an abscess (boil). This a pus-forming infection, usually due to staph. Some boils may be left to drain on their own, but most require lancing. From the time the tender lump first appears, it may be three or four days before the abscess is ready to nash. Local heat and rest help at this stage of treatment. An antibiotic may prevent spread of the infection. Once the abscess is opened, packing may be placed into it. This is done so pus is not sealed inside by premature closure of the cavity. The packing will be removed at your follow-up visit or you may be advised to remove it yourself at home. Sometimes this packing must be replaced a few times during healing. The wound will heal with surprisingly little scar. Depending on the size and location of an abscess, healing can take one to four weeks. You may shower and wash the area around the incision site two or three times a day. Antibiotics may be prescribed, but are usually not necessary after an abscess has been drained. If you develop fever, chills, worsening pain, or increasing swelling in the area, call the doctor or return immediately. POST INCISION AND DRAINAGE: You have had an incision made to allow drainage of an abscess. The incision must remain open so that pus and debris can drain from the wound. If the abscess cavity is large, packing is placed. This keeps the tissues from collapsing and trapping pus inside, while the body shrinks the cavity. The packing may need to be replaced every day or two. The physician will instruct you on the packing. Keep a bulky dressing over the area. Replace it if it becomes saturated with blood or pus. Do not disturb the packing (if present). You may shower and cleanse the area with gentle soap and warm water two or three times a day. Local warmth may be soothing, and may promote faster healing. Return if you develop high fever or chills, or if you note spreading redness, increasing swelling, or increasing tenderness. CEPHALEXIN: The antibiotic you've been prescribed is a member of the cephalosporin class. This type of antibiotic covers a wide variety of infections, including those of the skin, lungs, and urinary tract. It's useful for staph infections. This antibiotic is slightly similar to the penicillin family. In rare cases , a person who is allergic to penicillin will also be allergic to this medication. If you have had a severe allergic reaction to penicillin, and have not taken this antibiotic since that time, notify your doctor. Antibiotics which cover many germs ("broad spectrum" antibiotics) are more likely to cause diarrhea or "yeast" infections. Women prone to vaginal yeast problems may suffer an attack after taking this antibiotic. In infants, oral thrush (white spots "stuck" on the cheek) or yeast diaper rash may result. See your doctor if these problems occur. Call at once if you develop itching, hives , shortness of breath, or lightheadedness. TRIMETHOPRIM-SULFA: You have been given a prescription for trimethoprim-sulfa (TMS, Septra, Bactrim). This is a combination antibiotic of the sulfa class, often used for urinary tract infections, middle ear infections, bronchitis, shigella intestinal infection, and Pneumocystis pneumonia. TMS is usually well-tolerated. Occasional side effects include nausea and decreased appetite. Septra is not recommended for infants less than two months of age. Do not take this medication if you have experienced severe side effects or allergy to sulfa medicine. You should stop this medicine at once and contact your physician if you develop any rash, joint pain, shortness of breath, bruising, or jaundice ( yellow color in the skin), or if you develop any other new or unusual symptoms. Epsom Salt Soaks Soak the wound area in a container of warm epsom salt water. If you can't get the wound area into a bucket or payne, use a folded towel soaked in the epsom salt solution and apply to the area. Use clean hot tap water (about the temperature of a very warm bath), mixing in about one (1) teaspoon for every pint of water. Two gallon --> 16 teaspoons Epsom Salts One gallon --> 8 teaspoons Epsom Salts Two quarts --> 4 teaspoons Epsom Salts One quart --> 2 teaspoons Epsom Salts Soak the wound for about 20 minutes while gently moving it around in the water. Repeat this four (4) times a day FOLLOW-UP CARE: Most simple abscesses will not require a follow up visit. If you had packing placed in the abscess, remove it as instructed by the physician. If you have been referred to a physician for follow-up care, call the physicians office for an appointment as you were instructed or within the next two days. If you experience worsening or a significant change in your symptoms, return to the Emergency Department at any time for re-evaluation. Prescriptions: Cephalexin Monohydrate [Keflex 500 mg Capsule] 500 mg PO QID #20 capsule Sulfamethoxazole/Trimethoprim [Septra-Ds 800-160 mg Tablet] 1 tab PO BID #14 tablet Forms: Elevated Blood Pressure, Smoking Cessation Education, Return to Work Referrals: [facility] [NO LOCAL MD] - Follow up as needed
== END 2017-09-16 15:10 | disposition home or self-care (01) ==
LOC: ER 14:41
PROC: 0H9DXZZ Drainage of Right Lower Arm Skin, External Approach (ICD-10-PCS; principal; 2017-09-16)
DX: L02.413 Cutaneous abscess of right upper limb (principal); F17.210 Nicotine dependence, cigarettes, uncomplicated; J45.909 Unspecified asthma, uncomplicated
CPT/HCPCS: 87070; 87205; 99282

== ENCOUNTER 2018-01-02 02:21 | Emergency (ER) | payer SELFPAY ==
[2018-01-02] MEDS ORDERED: LEVETIRACETAM 1000 MG/NACL-ISO 1,000 MG/100 ML RTUPB IV ONE (03:57)
[2018-01-02] MEDS ORDERED: GABAPENTIN 300 MG CAPSULE PO ONE (04:24)
[2018-01-02] MEDS ORDERED: ONDANSETRON HCL INJ/PF 4 MG/2 ML SDV IV ONE (04:47)
[2018-01-02] MEDS ORDERED: ACETAMINOPHEN 325 MG TABLET PO ONE (04:48)
[2018-01-02 04:52] LABS: ANION GAP 6 (5-19); BLOOD UREA NITROGEN 10 mg/dL (7-20); CALCIUM 10.1 mg/dL (8.4-10.2); CARBON DIOXIDE 25 mmol/L (22-30); CHLORIDE 114 mmol/L (98-107); GLUCOSE 99 mg/dL (75-110); POTASSIUM 4.1 mmol/L (3.6-5.0); SODIUM 144.8 mmol/L (137-145)
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
[2018-01-02 07:45] VITALS: BP 119/63
--- NOTE | 2018-01-02 07:47 | RADIOLOGY REPORT (SQ) ---
Left shoulder three view on 01/02/2018 at 5:55 AM CLINICAL INDICATION: Trauma, pain COMPARISON: None FINDINGS: Chronic calcification is noted adjacent to the humeral head consistent with calcific tendinitis. The AC joint is well aligned. The glenohumeral joint is well located. There are no fractures. IMPRESSION: Findings consistent with calcific tendinitis with no acute bony abnormality.
== END 2018-01-02 07:45 | disposition home or self-care (01) ==
LOC: ER 02:21
DX: G40.909 Epilepsy, unspecified, not intractable, without status epilepticus (principal); M25.512 Pain in left shoulder; F17.200 Nicotine dependence, unspecified, uncomplicated
CPT/HCPCS: 99284; 96375; 96365; 36415; 83735; 80048; 73030; J2405; J1953

== ENCOUNTER 2018-04-25 21:26 | Emergency (ER) | payer SELFPAY ==
[2018-04-25] MEDS ORDERED: IPRATROPIUM/ALBUTEROL 0.5-2.5 MG/3 ML AMPUL NEB ONE (22:28)
[2018-04-25] MEDS ORDERED: METHYLPREDNISOLONE INJ 125 MG/2 ML SDV IM ONE (22:28)
--- NOTE | 2018-04-25 22:39 | ER Document Report ---
ED General - General Chief Complaint: Congestion Stated Complaint: COUGH Time Seen by Provider: 04/25/18 22:15 Mode of Arrival: Ambulatory Information source: Patient Notes: 38-year-old male presents emergency department with complaints of sinus congestion, nasal congestion, sore throat, productive cough. Patient states that this is been going on for the last 3 days. Patient denies a history of sick contacts. Patient states that he is coughing up green material. He states that he is a smoker and has also been wheezing. He does not have an albuterol inhaler and he is not on oxygen. Patient states that his only medical problem is seizures. He is currently on Keppra and gabapentin. TRAVEL OUTSIDE OF THE [place] IN LAST 30 DAYS: No - HPI Onset: Other - 3 days Onset/Duration: Gradual Quality of pain: No pain Severity: None Pain Level: Denies Associated symptoms: Productive cough, Sinus pain/drainage Exacerbated by: Denies Relieved by: Denies Similar symptoms previously: No Recently seen / treated by doctor: No - Related Data Allergies/Adverse Reactions: codeine Allergy (Verified 01/02/18 02:22) ibuprofen Allergy (Verified 01/02/18 02:22) Past Medical History - General Information source: Patient - Social History Smoking Status: Current Every Day Smoker Family History: Reviewed & Not Pertinent Pulmonary Medical History: Reports: Hx Asthma Neurological Medical History: Reports: Hx Seizures Renal/ Medical History: Reports: Hx Kidney Stones. 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, Hx Orthopedic Surgery - Left shoulder surgery 3, Other - Kidney stone surgery - Immunizations Hx Diphtheria, Pertussis, Tetanus Vaccination: Yes Review of Systems - Review of Systems Constitutional: No symptoms reported EENT: Nose congestion, Nose discharge, Sinus pressure, Sinus discharge, Throat pain Cardiovascular: No symptoms reported Respiratory: Cough, Wheezing Gastrointestinal: No symptoms reported Genitourinary: No symptoms reported Male Genitourinary: No symptoms reported Musculoskeletal: No symptoms reported Skin: No symptoms reported Hematologic/Lymphatic: No symptoms reported Neurological/Psychological: No symptoms reported -: Yes All other systems reviewed and negative Physical Exam - Vital signs Vitals: Temp Pulse Resp BP Pulse Ox 98.9 F 73 20 128/71 H 95 04/25/18 21:49 04/25/18 21:49 04/25/18 21:49 04/25/18 21:49 04/25/18 21:49 - Notes Notes: PHYSICAL EXAMINATION: GENERAL: Well-appearing, well-nourished and in no acute distress. HEAD: Atraumatic, normocephalic. EYES: Pupils equal round and reactive to light, extraocular movements intact, sclera anicteric, conjunctiva are normal. ENT: Nares patent, oropharynx clear without exudates. Moist mucous membranes. NECK: Normal range of motion, supple without lymphadenopathy LUNGS: Diffuse wheezing. No respiratory distress. HEART: Regular rate and rhythm without murmurs ABDOMEN: Soft, nontender, nondistended abdomen. No guarding, no rebound. No masses appreciated. Musculoskeletal: Normal range of motion, no pitting or edema. No cyanosis. NEUROLOGICAL: Cranial nerves grossly intact. Normal speech, normal gait. Normal sensory, motor exams PSYCH: Normal mood, normal affect. SKIN: Warm, Dry, normal turgor, no rashes or lesions noted. Course - Re-evaluation Re-evalutation: 04/26/18 01:00 Vital signs are stable. Physical exam is remarkable for wheezing. Patient given steroids and a nebulizer treatment while in the emergency department. Patient instructed to follow-up with his primary care physician this week, to take the medication prescribed as directed, and to return for worsening symptoms. - Vital Signs Vital signs: Temp Pulse Resp BP Pulse Ox 98.1 F 72 20 137/64 H 95 04/25/18 23:39 04/25/18 23:39 04/25/18 21:49 04/25/18 23:39 04/25/18 23:39 Discharge - Discharge Clinical Impression: Wheezing Upper respiratory infection Qualifiers: URI type: unspecified URI Qualified Code(s): J06.9 - Acute upper respiratory infection, unspecified Condition: Good Disposition: HOME, SELF-CARE Instructions: Upper Respiratory Illness ([facility]), Viral Syndrome ([facility]) Prescriptions: Benzonatate [Tessalon Perles 100 mg Capsule] 100 mg PO Q8HP PRN #10 capsule PRN Reason: Albuterol Sulfate [Proair HFA Inhalation Aerosol 8.5 gm MDI] 2 puff IH Q4H PRN #1 mdi PRN Reason: Azithromycin [Zithromax 250 mg Tablet] 250 mg PO DAILY #5 tablet Prednisone [Deltasone 20 mg Tablet] 3 tab PO DAILY 5 Days #15 tablet Referrals: AMOL STEIN MD [ACTIVE STAFF] - Follow up as needed
[2018-04-25 23:40] VITALS: BP 137/64
== END 2018-04-25 23:43 | disposition home or self-care (01) ==
LOC: ER 21:26
DX: J06.9 Acute upper respiratory infection, unspecified (principal); J45.909 Unspecified asthma, uncomplicated; R09.81 Nasal congestion; R05 Cough; J02.9 Acute pharyngitis, unspecified; Z79.899 Other long term (current) drug therapy; F17.200 Nicotine dependence, unspecified, uncomplicated
CPT/HCPCS: 94640; 99283; 96372; J2930; J7620

== ENCOUNTER 2018-11-25 17:43 | Emergency (ER) | payer MEDICAID ==
[2018-11-25] MEDS ORDERED: LEVETIRACETAM 500 MG TABLET PO ONE (18:04)
[2018-11-25] MEDS ORDERED: LEVETIRACETAM 1000 MG/NACL-ISO 1,000 MG/100 ML RTUPB IV ONE (18:05)
--- NOTE | 2018-11-25 18:08 | ER Document Report ---
ED Medical Screen (RME) - General Chief Complaint: Seizure Stated Complaint: POSSIBLE SEIZURE Time Seen by Provider: 11/25/18 17:57 Notes: Patient is a 38-year-old male who presents to the emergency department after a seizure. His seizure happened at 3:00 this morning. Patient states that he still feels a little drowsy, but is almost back to baseline. Patient states that he ran out of his Keppra and gabapentin last week due to insurance reasons. Patient also currently takes methadone from the methadone clinic. Patient usually has Keppra 1000 mg twice a day and gabapentin 900 mg 4 times a day. Exam: 5 out of 5 strength in upper and lower extremities. I have greeted and performed a rapid initial assessment of this patient. A comprehensive ED assessment and evaluation of the patient, analysis of test results and completion of medical decision making process will be conducted by an additional ED providers. TRAVEL OUTSIDE OF THE [place] IN LAST 30 DAYS: No - Related Data Allergies/Adverse Reactions: codeine Allergy (Verified 11/25/18 17:44) ibuprofen Allergy (Verified 11/25/18 17:44) Past Medical History - Social History Frequency of alcohol use: None Drug Abuse: None Pulmonary Medical History: Reports: Hx Asthma Neurological Medical History: Reports: Hx Seizures Renal/ Medical History: Reports: Hx Kidney Stones. 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
[2018-11-25 18:46] LABS: ABSOLUTE EOSINOPHILS # (AUTO) 0.1 10^3/uL (0.0-0.6); ABSOLUTE MONOCYTES (AUTO) 0.3 10^3/uL (0.1-1.4); ABSOLUTE NEUT (AUTO) 1.9 10^3/uL (1.7-8.2); BASOPHILS % (AUTO) 0.9 % (0-2); EOSINOPHILS % (AUTO) 1.8 % (0-6); HEMATOCRIT 41.5 % (37.9-51.0); HEMOGLOBIN 14.5 g/dL (13.5-17.0); LYMPHOCYTES % (AUTO) 55.7 % (13-45); MEAN CORPUSCULAR HEMOGLOBIN 32.7 pg (27.0-33.4); MEAN CORPUSCULAR HGB CONC 34.9 g/dL (32.0-36.0); MEAN CORPUSCULAR VOLUME 94 fl (80-97); PLATELET COUNT 112 10^3/uL (150-450); RED BLOOD COUNT 4.43 10^6/uL (4.35-5.55); RED CELL DISTRIBUTION WIDTH 13.4 % (11.5-14.0); SEGMENTED NEUTROPHILS % (AUTO) 35.6 % (42-78); TOTAL CELLS COUNTED % (AUTO) 100 %; WHITE BLOOD COUNT 5.4 10^3/uL (4.0-10.5)
[2018-11-25 19:02] LABS: ALKALINE PHOSPHATASE 94 U/L (38-126); ANION GAP 5 (5-19); ASPARTATE AMINO TRANSFERASE 79 U/L (17-59); BILIRUBIN,DIRECT 0.3 mg/dL (0.0-0.4); BILIRUBIN,TOTAL 0.4 mg/dL (0.2-1.3); BLOOD UREA NITROGEN 18 mg/dL (7-20); CALCIUM 9.4 mg/dL (8.4-10.2); CARBON DIOXIDE 29 mmol/L (22-30); CHLORIDE 105 mmol/L (98-107); GLUCOSE 115 mg/dL (75-110); POTASSIUM 4.6 mmol/L (3.6-5.0); TOTAL PROTEIN 7.2 g/dL (6.3-8.2)
--- NOTE | 2018-11-25 19:07 | ER Document Report ---
HPI - HPI Patient complains to provider of: medication refill, recurrent seizure Time Seen by Provider: 11/25/18 17:57 Onset: This evening Onset/Duration: Sudden, Gone Severity: Mild Pain Level: Denies Context: 38 yom with the listed pmh, here requesting a refill of his neurontin 1200mg tid and keppra 1000mg bid that he has been on for over 6yrs for his gran-mal tonic clonic like seizures. no changes in doses, meds, diet, or weight. states he has been out of those meds for a week due to now getting medicaid and having to find new pcp and neuro as he had no insurance before and the [facility] per pt will no longer see him since he has insurance now. he states last night he had a brief, witness, resolved, and nonrecurrent seizure that was just like his usual tonic clonic seizures his significant other witnessed who is in the room. significant other states seizure only lasted less than a min. he was laying down when it happened. he had no fall or trauma otherwise. wasn't in status epilepticus. states was sleepy with his typical post-ictal meadows afterwards and since sx have resolved and he has had no further seizures or sx and remained at baseline and asymptomatic. sig other denies any tongue biting or incontinence or other changes or other ams. pt denies any preceding seizure sx. states all typical of his usual sx he usually gets once a month or so and less when he has his meds. states also on methadone for chronic pain and still has plenty of this however. denies withdrawal seizures. denies hx of diabetes or etoh use. no other forms of intoxication. denies pain or any complaints and is just requesting refills of his neurontin and keppra and to be dc and states he will f/u with a new pcp/neuro as soon as they can get him in. no other complaints at this time. no blood thinners. denies intoxication. has had a neg head ct and mri in the past. pt able to walk. Exacerbated by: Other - medication noncompliance Similar symptoms previously: Yes Recently seen / treated by doctor: No - ROS Systems Reviewed and Negative: Yes All other systems reviewed and negative - to include 10 systems, unless mentioned in the hpi - DERM Skin Color: Normal Past Medical History - General Information source: Patient - Social History Smoking Status: Current Every Day Smoker Frequency of alcohol use: None Drug Abuse: None Family History: Reviewed & Not Pertinent Patient has suicidal ideation: No Patient has homicidal ideation: No - Past Medical History Cardiac Medical History: Reports: None Pulmonary Medical History: Reports: Hx Asthma - not on O2, prn when sick. mild. stable, controlle.d Neurological Medical History: Reports: Hx Seizures - tonic clonic, gran mal. usually controlled when compliant with meds. Denies: Hx Cerebrovascular Accident, Hx Migraine Endocrine Medical History: Reports: None Renal/ Medical History: Reports: Hx Kidney Stones. Denies: Hx Peritoneal Dialysis GI Medical History: Reports: Hx Gastroesophageal Reflux Disease Musculoskeletal Medical History: Reports Hx Arthritis - chronic pain-on methadone-compliant with meds Past Surgical History: Reports: Hx Neurologic Surgery - 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, Hx Orthopedic Surgery - Left shoulder surgery 3, Other - Kidney stone surgery - Immunizations Immunizations up to date: Yes Hx Diphtheria, Pertussis, Tetanus Vaccination: Yes Vertical Provider Document - CONSTITUTIONAL Notes: GENERAL_APPEARANCE: well_nourished, alert, cooperative, no obvious discomfort. Pleasant, middle aged male, playing on his phone, infant and significant other at bedside, smiling, speaking in full sentences, in no sign of pain or resp di stress, easily sitting up. lights and tv on VITALS: reviewed, see vital signs table. HEAD: normocephalic and atraumatic, no raccoon eyes, no hale signs. no swelling or ttp. EARS: canals_clear_bilat, TMs_clear, no_discharge_from_ears. no hemotympanum EYES: EOMI without pain, conjunctiva_clear. PERRL, eyelids wnl. no drainage. no ttp or crepitation of the orbits. no sign of orbital/periorbital cellulitis. no hyphema. no nystagmus MOUTH: no_lacerations inside_mouth. no broken teeth. no tmj clicking or ttp. pharynx wnl. tongue protrudes midline. no drooling, tripoding, voice change, or stridor, no thrush or oral lesions. no tongue or lip swelling. NOSE: no drainage or epistaxis NECK: no_swelling\tenderness on the neck. no midline bony tenderness. no step offs or deformities. full rom. full strength. no meningeal signs. no sign of central cord syndrome. HEART: normal_rate, normal_rhythm, LUNGS: ctab. no chest wall ttp. no overlying skin changes. no flail chest or crepitation. ABDOMEN: normal_BS, soft, no_abd_tenderness, no rebound, guarding, distension, or peritoneal signs. no cva ttp. no overlying skin changes. BACK: no midline bony tenderness. no step offs or deformities RECTAL: deferred, however, no sign of loss of bowel or bladder or soiling of clothing. EXTREMITIES: strength 5/5 in all_extremities, good pulses all_extremities, no_abrasions\lacerations in the extremities, no_swelling\tenderness in the extremities. full rom. normal gait. good hand lead handler. brisk cap refill. no shortening or rotation of the limbs or other signs of deformities unless otherwise noted. SKIN: warm, dry, good_color. no other grossly visible overlying skin changes or signs of trauma unless otherwise noted. NEURO: reflexes symmetric throughout, cranial nerves 2 - 12 intact, motor_intact, sensory_intact. cerebellar function intact GLASCOW_COMA_SCORE: (adult) - eyes_open_spontaneously_4, verbal_converses_and_oriented_5, motor_obeys_commands_6, glasgow_coma_total_15, MENTAL_STATUS: speech_clear, oriented_X_3, responds_appropriately to questions. - INFECTION CONTROL TRAVEL OUTSIDE OF THE [place] IN LAST 30 DAYS: No Course - Re-evaluation Re-evalutation: pt here for requesting a refill of his gabapentin and keppra. labs unremarkable other than a mild thrombocytopenia which pt has had in the past. he has no overlying skin changes, bruising, petechia, and denies acute blood loss sx or bleeding from any where. keppra level pending. ekg unremarkable per dr grewal. he was given a loading dose of IV keppra and his usual po dose of gabapentin. states has been on them for many years and usually when he takes them they control his seizures well; however, he had lost insurance but now states he just got medicaid back and is trying to get into a pcp/neuro for f/u and refill of his meds and has been out of them for a week now and had one of his usual seizures that was witnessed by his significant other last night so he came in for refills of his meds since he hasn't been able to get in to see his doctors. he and significant other state all sx were consistent with usual gran-mal tonic clonic seizures with mild post-ictal state. no incontinence and has had no other recurrent seizures. denies status epilepticus and has been acting baseline sinc e. he denies any complaints currently and feels at baseline and is just requesting refills of those two meds until he can get in to see his doctors. he has remained neurononfocal and at baseline. will give him a months worth of his keppra and neurontin. gave him pcp list and neurology f/u. he is again well appearing smiling, continues to deny any complaints and has played on his phone and watched/listed to tv mostly his entire stay and remained at baseline. advised to f/u with pcp/neuro in 1-2 days. return for any worsening symptoms. vss. well appearing. satting well on ra. neurononfocal. pt understands and agrees to plan. neurononfocal. On reexam, pt improved with tx listed. remained stable. nontoxic. well appearing. pain controlled. tolerating po. requesting to go home. neurononfocal. case discussed with ER Attending, Dr. campos, who directed and agrees with plan of care and advised no further workup indicated at this time and pt is stable for dc home with close f/u with pcp/neurologist. Documentation achieved through voice recording which my lead to some occasional accidental typographical errors. Extensive efforts have been made to proof read documentation to make sure these are the least as possible. Category Date Time Status EKG Documentation STAT Care 11/25/18 18:48 Completed Lock [Saline Lock (ED)] NOW Care 11/25/18 18:05 Active ADD ON [ADD ON TESTING BLD IN LAB] [CHEM] Stat Lab 11/25/18 18:25 Completed CBC WITH DIFF [HEME] Stat Lab 11/25/18 18:25 Completed CMP [COMPREHENSIVE METABOLIC PANEL] [CHEM] Stat Lab 11/25/18 18:25 Completed MAGNESIUM [CHEM] Stat Lab 11/25/18 18:25 Completed TSH [THYROID STIMULATING HORMONE] [CHEM] Stat Lab 11/25/18 18:25 Completed Gabapentin [Neurontin 300 mg Capsule] Med 11/25/18 19:10 Discontinued 1,200 mg PO NOW ONE Levetiracetam 1000 mg/NaCl-Iso [Keppra RTU 1000 mg/NaCl Med 11/25/18 18:05 Discontinued -Iso 100 ml Premix] Levetiracetam [Keppra 500 mg Tablet] Med 11/25/18 18:04 Discontinued 1,000 mg PO NOW ONE EKG ER ONLY [ER] Stat Oth 11/25/18 Completed - Vital Signs Vital signs: Temp Pulse Resp BP Pulse Ox 97.8 F 62 14 122/76 94 11/25/18 17:47 11/25/18 17:47 11/25/18 17:47 11/25/18 17:47 11/25/18 17:47 - Laboratory Result Diagrams: 11/25/18 18:25 11/25/18 18:25 Laboratory results interpreted by me: Labs- Entire Visit 11/25/18 11/25/18 11/25/18 18:25 18:25 18:25 WBC 5.4 RBC 4.43 Hgb 14.5 Hct 41.5 MCV 94 MCH 32.7 MCHC 34.9 RDW 13.4 Plt Count 112 L Seg Neutrophils % 35.6 L Lymphocytes % 55.7 H Monocytes % 6.0 Eosinophils % 1.8 Basophils % 0.9 Absolute Neutrophils 1.9 Absolute Lymphocytes 3.0 Absolute Monocytes 0.3 Absolute Eosinophils 0.1 Absolute Basophils 0.0 Sodium 139.3 Potassium 4.6 Chloride 105 Carbon Dioxide 29 Anion Gap 5 BUN 18 Creatinine 0.71 Est GFR ( Amer) > 60 Est GFR (Non-Af Amer) > 60 Glucose 115 H Calcium 9.4 Magnesium 1.7 Total Bilirubin 0.4 Direct Bilirubin 0.3 Neonat Total Bilirubin Not Reportable Neonat Direct Bilirubin Not Reportable Neonat Indirect Bili Not Reportable AST 79 H ALT 112 Alkaline Phosphatase 94 Total Protein 7.2 Albumin 4.0 TSH 11/25/18 18:25 WBC RBC Hgb Hct MCV MCH MCHC RDW Plt Count Seg Neutrophils % Lymphocytes % Monocytes % Eosinophils % Basophils % Absolute Neutrophils Absolute Lymphocytes Absolute Monocytes Absolute Eosinophils Absolute Basophils Sodium Potassium Chloride Carbon Dioxide Anion Gap BUN Creatinine Est GFR ( Amer) Est GFR (Non-Af Amer) Glucose Calcium Magnesium Total Bilirubin Direct Bilirubin Neonat Total Bilirubin Neonat Direct Bilirubin Neonat Indirect Bili AST ALT Alkaline Phosphatase Total Protein Albumin TSH 2.33 - EKG Interpretation by Pa EKG shows normal: Sinus rhythm Rate: Normal Rhythm: NSR - 58 bpm, no stemi, no old avail for comparison, reviewed by dr grewal When compared to previous EKG there are: Previous EKG unavailable Discharge - Discharge Clinical Impression: Seizure, Hx of medication noncompliance, Thrombocytopenia Condition: Good Disposition: HOME, SELF-CARE Instructions: Seizure, Known Epileptic ([facility]) Additional Instructions: Follow-up with PCP/neuro in 1 to 2 days. Return for any worsening symptoms. take your medication as prescribed. have your blood work rechecked by your pcp in 1-2 days. f/u with neurology and pcp for establishment as discussed. eat and drink at regular intervals. Prescriptions: Gabapentin 1,200 mg PO TID #180 tablet Levetiracetam [Keppra] 1,000 mg PO BID #60 tablet Referrals: NICOL JUNE MD [ACTIVE STAFF] - Follow up tomorrow ELIAS BARON MD [NO LOCAL MD] - Follow up tomorrow
[2018-11-25] MEDS ORDERED: GABAPENTIN 300 MG CAPSULE PO ONE (19:10)
[2018-11-25 20:00] VITALS: BP 119/69
--- NOTE | 2018-11-26 09:33 | EKG REPORT ---
SEVERITY:- BORDERLINE ECG - SINUS RHYTHM BORDERLINE INFERIOR Q WAVES NONSPECIFIC ANTEROSEPTAL T WAVE CHANGES : Confirmed by: Charbel Nelson MD 26-Nov-2018 09:32:58
== END 2018-11-25 20:00 | disposition home or self-care (01) ==
LOC: ER 17:43
DX: R56.9 Unspecified convulsions (principal); D69.6 Thrombocytopenia, unspecified; Z91.14 Patient's other noncompliance with medication regimen; F17.200 Nicotine dependence, unspecified, uncomplicated; J45.909 Unspecified asthma, uncomplicated
CPT/HCPCS: 93005; 99282; 96365; 36415; 83735; 84443; 85025; 80053; 93010; J3490; J1953

== ENCOUNTER → 2019-05-02 | Outpatient (CLI) | payer MEDICAID ==
--- NOTE | 2019-05-02 12:51 | RADIOLOGY REPORT (SQ) ---
EXAM DESCRIPTION: U/S ABDOMEN LIMITED W/O DOP COMPLETED DATE/TIME: 05/02/2019 8:52 am REASON FOR STUDY: CHRONIC VIRAL HEPATITIS C (B18.2) B18.2 CHRONIC VIRAL HEPATITIS C COMPARISON: Right upper quadrant ultrasound 06/07/2017 CT abdomen pelvis 08/16/2016, 04/29/2016 TECHNIQUE: Dynamic and static grayscale images acquired of the abdomen and recorded on PACS. Additio nal selected color Doppler and spectral images recorded. LIMITATIONS: Midline bowel gas FINDINGS: PANCREAS: Not well seen LIVER: Normal size, diffusely echogenic from fatty infiltration or diffuse hepatocellular disease. N o masses. No biliary ductal dilatation LIVER VASCULATURE: Normal directional flow of the main portal vein and hepatic veins. GALLBLADDER: Distended, 14 cm in length. No stones or sludge. No gallbladder wall thickening or per icholecystic fluid. ULTRASOUND-DETECTED DELGADILLO'S SIGN: Negative. INTRAHEPATIC DUCTS AND COMMON DUCT: CBD 7 mm at the margarita hepatis. Distal most common duct not well seen. No intrahepatic biliary ductal dilatation. INFERIOR VENA CAVA: Normal flow. AORTA: No aneurysm. RIGHT KIDNEY: Normal size. No hydronephrosis or stones. 4.6 cm upper pole renal cortical cyst PERITONEAL AND RIGHT PLEURAL SPACE: No ascites or effusions. OTHER: No other significant findings. IMPRESSION: Echogenic liver from diffuse fatty infiltration or hepatocellular disease Distended gallbladder without stones or pericholecystic fluid. No gallbladder wall thickening. Nega tive sonographic Delgadillo's sign TECHNICAL DOCUMENTATION: JOB ID: [id number] [employer]- All Rights Reserved Reading location - IP/workstation name: [email or web address]
== END ==
LOC: RAD 07:28
PROVIDERS: ATTEND Internal Medicine Gastroenterology
DX: B18.2 Chronic viral hepatitis C (principal)
CPT/HCPCS: 76705

== ENCOUNTER 2020-01-21 21:24 | Emergency (ER) | payer MEDICAID ==
[2020-01-21 21:36] VITALS: BP 146/76
--- NOTE | 2020-01-21 22:56 | ER Document Report ---
ED Medical Screen (RME) - General Chief Complaint: Pain All Over Stated Complaint: LEFT SIDE PAIN Time Seen by Provider: 01/21/20 22:49 Primary Care Provider: RAFITA TAYLOR MD [Primary Care Provider] - Follow up as needed Mode of Arrival: Ambulatory Information source: Patient Notes: HPI; 40-year-old male presents to the emergency room complaining of left-sided numbness and tingling for the past 2 weeks. Patient with a previous history of drug abuse. 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 States he last used yesterday. 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 He denies any chest pain, no shortness of breath, no difficulty breathing. PE: Alert and oriented x3. Lungs: Clear to auscultation without rales, rhonchi, wheezes. Heart: Regular rate rhythm without murmurs, rubs, gallops. Negative fast exam. Clothing Manager strength equal and adequate bilaterally. I have greeted and performed a rapid initial assessment of this patient. A comprehensive ED assessment and evaluation of the patient, analysis of test results and completion of the medical decision making process will be conducted by additional ED providers. I have specifically instructed the patient or family members with the patient to immediately return to any nursing staff should anything change in the patient's condition or with their chief complaint. TRAVEL OUTSIDE OF THE [place] IN LAST 30 DAYS: No - Related Data Allergies/Adverse Reactions: codeine Allergy (Verified 11/25/18 17:44) ibuprofen Allergy (Verified 11/25/18 17:44) Past Medical History Pulmonary Medical History: Reports: Hx Asthma - not on O2, prn when sick. mild. stable, controlle.d Neurological Medical History: Reports: Hx Seizures - tonic clonic, gran mal. usually controlled when compliant with meds. Denies: Hx Cerebrovascular Accident, Hx Migraine Renal/ Medical History: Reports: Hx Kidney Stones. 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, Hx Orthopedic Surgery - Left shoulder surgery 3, Other - Kidney stone surgery - Immunizations Immunizations up to date: Yes Hx Diphtheria, Pertussis, Tetanus Vaccination: Yes Physical Exam - Vital signs Vitals: Temp Pulse Resp BP Pulse Ox 98.3 F 81 18 146/76 H 95 01/21/20 21:31 01/21/20 21:31 01/21/20 21:31 01/21/20 21:31 01/21/20 21:31 Course - Vital Signs Vital signs: Temp Pulse Resp BP Pulse Ox 98.3 F 81 18 146/76 H 95 01/21/20 21:31 01/21/20 21:31 01/21/20 21:31 01/21/20 21:31 01/21/20 21:31 Doctor's Discharge - Discharge Referrals: RAFITA TAYLOR MD [Primary Care Provider] - Follow up as needed
[2020-01-21 23:52] LABS: APPEARANCE,URINE SLIGHTLY-CLOUDY; BILIRUBIN,URINE NEGATIVE (NEGATIVE); COLOR,URINE YELLOW; GLUCOSE, URINE NEGATIVE (NEGATIVE); KETONES,URINE NEGATIVE (NEGATIVE); LEUKOCYTE ESTERASE,URINE TRACE (NEGATIVE); NITRITE,URINE NEGATIVE (NEGATIVE); PROTEIN,URINE NEGATIVE (NEGATIVE); URINE SPECIFIC GRAVITY 1.025
[2020-01-22 00:12] LABS: URINE BARBITURATES SCREEN NEGATIVE; URINE BENZODIAZEPINES SCREEN NEGATIVE; URINE COCAINE SCREEN NEGATIVE; URINE MARIJUANA (THC) SCREEN NEGATIVE; URINE PHENCYCLIDINE SCREEN NEGATIVE
[2020-01-22 00:23] LABS: URINE METHADONE SCREEN UNCONFIRMED POSITIVE
[2020-01-22 00:44] LABS: ALBUMIN 4.4 g/dL (3.5-5.0); ALKALINE PHOSPHATASE 98 U/L (38-126); ANION GAP 8 (5-19); ASPARTATE AMINO TRANSFERASE 34 U/L (17-59); BILIRUBIN,DIRECT 0.3 mg/dL (0.0-0.4); BILIRUBIN,TOTAL 0.6 mg/dL (0.2-1.3); BLOOD UREA NITROGEN 14 mg/dL (7-20); CALCIUM 9.6 mg/dL (8.4-10.2); CARBON DIOXIDE 29 mmol/L (22-30); CHLORIDE 103 mmol/L (98-107); GLUCOSE 103 mg/dL (75-110); POTASSIUM 4.6 mmol/L (3.6-5.0); TOTAL PROTEIN 8.1 g/dL (6.3-8.2)
[2020-01-22 01:09] LABS: ABSOLUTE BASOPHILS # (AUTO) 0.1 10^3/uL (0.0-0.2); ABSOLUTE EOSINOPHILS # (AUTO) 0.1 10^3/uL (0.0-0.6); ABSOLUTE LYMPHOCYTES (AUTO) 3.1 10^3/uL (0.5-4.7); ABSOLUTE MONOCYTES (AUTO) 0.5 10^3/uL (0.1-1.4); BASOPHILS % (AUTO) 0.7 % (0-2); EOSINOPHILS % (AUTO) 1.4 % (0-6); HEMATOCRIT 45.7 % (37.9-51.0); HEMOGLOBIN 16.5 g/dL (13.5-17.0); LYMPHOCYTES % (AUTO) 35.3 % (13-45); MEAN CORPUSCULAR HEMOGLOBIN 32.7 pg (27.0-33.4); MEAN CORPUSCULAR HGB CONC 36.2 g/dL (32.0-36.0); MEAN CORPUSCULAR VOLUME 90 fl (80-97); MONOCYTES % (AUTO) 5.8 % (3-13); PLATELET COUNT 121 10^3/uL (150-450); RED BLOOD COUNT 5.06 10^6/uL (4.35-5.55); RED CELL DISTRIBUTION WIDTH 13.1 % (11.5-14.0); SEGMENTED NEUTROPHILS % (AUTO) 56.8 % (42-78); TOTAL CELLS COUNTED % (AUTO) 100 %; WHITE BLOOD COUNT 8.8 10^3/uL (4.0-10.5)
--- NOTE | 2020-01-22 17:47 | EKG REPORT ---
SEVERITY:- BORDERLINE ECG - SINUS RHYTHM : Confirmed by: Pam Marcelo MD 22-Jan-2020 17:46:37
== END 2020-01-22 06:06 | disposition left against medical advice (07) ==
LOC: ER 21:24
DX: R20.0 Anesthesia of skin (principal); R20.2 Paresthesia of skin; Z88.6 Allergy status to analgesic agent; Z87.442 Personal history of urinary calculi
CPT/HCPCS: 36415; 80053; 80307; 81001; 84484; 85025; 93005; 93010; 99281